=== PATIENT | female | born 1940 | race Caucasian/White ===

== ENCOUNTER 2018-10-08 11:30 | Emergency (ER) | payer MEDICARE, OTHER ==
[~2018-10-08] VITALS: Ht 157.5 cm; Wt 68.0 kg
[2018-10-08] MEDS ORDERED: STERILE SALINE126 ML NASAL (12:10)
[2018-10-08] MEDS ORDERED: KEFLEX500 M1 PO (12:10)
[2018-10-08] MEDS ORDERED: AFRIN15 ML NASAL (12:10)
[2018-10-08 12:18] VITALS: BP 136/45
== END 2018-10-08 12:19 | disposition home or self-care (01) ==
LOC: M.ERS 11:30
DX: L03.211 Cellulitis of face (principal); R04.0 Epistaxis